=== PATIENT | male | born 1995 | race African-American/Black ===

== ENCOUNTER 2017-10-03 21:56 | Emergency (ER) | payer SELFPAY ==
[~2017-10-03] VITALS: Ht 182.9 cm; Wt 77.3 kg
[2017-10-03 22:00] VITALS: BP 116/66; PULSE 78; RESP 16; TEMP 98.1; O2SAT 99
[2017-10-04] MEDS ORDERED: BACT800T5 PO (00:47)
--- NOTE | 2017-10-04 00:50 | PD ---
HPI Chief Complaint: Skin Problem Time Seen by Provider: 00:42 Travel History International Travel<30 days: No Contact w/Intl Traveler<30days: No Traveled to known affect area: No History of Present Illness HPI 22-year-old black male presents emergency Department with complaints of multiple tender skin lesions in his groin and right leg. He states that some of these lesions have open and draining. Symptoms are mild. He denies any fever chills. No history of skin infections in the past. No alleviating factors. No exacerbating factor. PFSH Past Medical History Asthma: Yes Tetanus Vaccination: < 5 Years Influenza Vaccination: No Past Surgical History Surgical History: No Previous Surgery Social History Alcohol Use: No Tobacco Use: No Substance Use: Yes Allergies-Medications (Allergen,Severity, Reaction): Coded Allergies: shrimp (Verified Allergy, Severe, Swelling, 10/03/17) Reported Meds & Prescriptions Reported Meds & Active Scripts Active No Active Prescriptions or Reported Medications Review of Systems Except as stated in HPI: all other systems reviewed are Neg Physical Exam Narrative GENERAL: This is a well-nourished, well-developed patient, in no apparent distress. SKIN: Patient has a follicular lesion to the left lower lip. He also has a lesion in the right groin and right thigh. These are superficial abscess. No fluctuance or pointing. HEAD: Atraumatic. Normocephalic. EYES: PERRL, EOMI, no discharge or injection. No scleral icterus. EARS: Clear NOSE: Nasal turbinates appear normal. THROAT: Mucosa pink and moist. Airway patent. NECK: Trachea midline. supple, moves head freely. LUNGS: Clear to auscultation. CV: Regular in rhythm. ABDOMEN: Soft nontender. EXT: No clubbing cyanosis or edema. Data Data Last Documented VS Vital Signs Date Time Temp Pulse Resp B/P (MAP) Pulse Ox O2 Delivery O2 Flow Rate FiO2 10/03/17 22:00 98.1 78 16 116/66 (83) 99 Orders Orders Sulfamet-Trimeth Ds 800-160 Mg (Bactrim (10/04/17 01:00) Ed Discharge Order (10/04/17 00:46) MDM Medical Decision Making Medical Screen Exam Complete: Yes Emergency Medical Condition: Yes Medical Record Reviewed: Yes Differential Diagnosis MDM: High Differential diagnoses: Abscess, folliculitis, cellulitis, lymphangitis, abrasion, contact dermatitis Narrative Course Patient is given Bactrim DS by mouth. Diagnosis Primary Impression: superficial abscesses Patient Instructions: General Instructions Additional Instructions: Rest. Elevation. keep clean and dry. Warm compresses. Daily wound care with soap, water and Neosporin. Three Advil every 6 hours. Bactrim DS Follow-up with a primary care doctor in one week. Return to the ER for any problems. Med/Other Pt SpecificInfo: Prescription(s) given Scripts Sulfamethoxazole-Trimethoprim (Bactrim DS) 800-160 Mg Tab 1 TAB PO BID for Infection, #20 TAB 0 Refills Prov: Marianne Lorenzo MD 10/04/17 Disposition: 01 DISCHARGE HOME Condition: Stable Jose Roberto Simpson Oct 04, 2017 00:50
[2017-10-04] MEDS ORDERED: SULFAMETHOXAZOLE-TRIMETHOPRIM DS 800-160 MG TAB PO ONE (01:00)
== END 2017-10-04 00:56 | disposition home or self-care (01) ==
LOC: NEPD 21:56
DX: K13.0 Diseases of lips (principal); L02.214 Cutaneous abscess of groin; L02.415 Cutaneous abscess of right lower limb
CPT/HCPCS: 99283